=== PATIENT | male | born 1990 | race Hispanic/Latino ===

== ENCOUNTER 2017-08-08 18:52 | Emergency (ER) | payer SELFPAY | END 2017-08-08 19:55 | disposition home or self-care (01) | LOC: EDH 18:52 | DX: H65.01 Acute serous otitis media, right ear (principal) ==

== ENCOUNTER 2017-08-18 11:50 | Emergency (ER) | payer SELFPAY | END 2017-08-18 12:38 | disposition home or self-care (01) | LOC: EDH 11:50 | DX: R05 Cough (principal); Z72.0 Tobacco use | CPT/HCPCS: 99281 ==

== ENCOUNTER 2018-02-27 11:06 | Emergency (ER) | payer MEDICARE | END 2018-02-27 11:54 | disposition home or self-care (01) | LOC: EDH 11:06 | DX: J06.9 Acute upper respiratory infection, unspecified (principal) | CPT/HCPCS: 99281 ==

== ENCOUNTER 2019-06-01 11:15 | Emergency (ER) | payer MEDICARE | END 2019-06-01 12:31 | disposition home or self-care (01) | LOC: EDH 11:15 | DX: R50.9 Fever, unspecified (principal); M79.10 Myalgia, unspecified site; R11.0 Nausea; R53.81 Other malaise; Z79.899 Other long term (current) drug therapy; Z72.0 Tobacco use | CPT/HCPCS: 99281 ==

== ENCOUNTER 2021-01-03 10:20 | Emergency (ER) | payer MEDICARE ==
[~2021-01-03] VITALS: Ht 180.3 cm; Wt 147.4 kg
[2021-01-03 10:26] VITALS: BP 123/77
[2021-01-03 11:05] LABS: EOSINOPHILS % (AUTO) 1.8 % (0.0-8.0); HEMATOCRIT 48.1 % (42-54); LYMPHOCYTES % (AUTO) 15.9 % (21.0-51.0); MEAN CORPUSCULAR HEMOGLOBIN 29.7 pg (27.0-33.0); MEAN CORPUSCULAR HGB CONC 33.1 g/dL (32.0-36.0); MEAN CORPUSCULAR VOLUME 89.7 fL (79-99); MONOCYTES % (AUTO) 6.7 % (3.0-13.0); NEUTROPHILS % (AUTO) 74.2 % (40.0-77.0); PLATELET COUNT (AUTO) 179 K/uL (130-400); RED BLOOD CELL COUNT(AUTO) 5.36 MIL/uL (4.50-6.20); RED CELL DISTRIBUTION WIDTH 12.7 % (11.0-15.5); WHITE BLOOD COUNT (AUTO) 5.1 K/uL (4.8-10.8)
[2021-01-03 11:18] LABS: CREATININE 1.1 mg/dL (0.5-1.5); POTASSIUM 3.5 mmol/L (3.5-5.1)
[2021-01-03 11:20] LABS: APPEARANCE,URINE Clear (CLEAR); BILIRUBIN,URINE Negative (NEGATIVE); COLOR,URINE Yellow (YELLOW); GLUCOSE, URINE (UA) Negative (NEGATIVE); KETONES,URINE Negative (NEGATIVE); LEUKOCYTE ESTERASE ,URINE Trace (NEGATIVE); NITRATE,URINE Negative (NEGATIVE); OCCULT BLOOD,URINE Negative (NEGATIVE); PROTEIN,URINE POS 1+ mg/dL (NEGATIVE)
[2021-01-03 11:22] LABS: ALBUMIN 3.7 g/dL (3.5-5.0); BILIRUBIN,TOTAL 0.8 mg/dL (0.2-1.0); TOTAL PROTEIN, SERUM 7.7 g/dL (6.0-8.3)
[2021-01-03 11:28] LABS: BACTERIA,URINE Rare /HPF (None Seen); RBC,URINE 0-1 /HPF (0-1); SQUAMOUS EPITHELIAL CELL,UR Few /HPF (0-2)
[2021-01-03 11:49] LABS: B-TYPE NATRIURETIC PEPTIDE < 5 pg/mL (0-100)
[2021-01-03 12:11] LABS: INR 0.99 (0.85-1.15); PROTHROMBIN TIME 10.8 SEC (9.6-11.6)
[2021-01-03 12:23] VITALS: BP 143/85
[2021-01-03] MEDS ORDERED: IBUPROFEN 600 MG TABLET PO ONE (12:30)
[2021-01-03] MEDS ORDERED: 0.9%NACL 1000ML 1,000 ML IV ONE (12:30)
[2021-01-03] MEDS ORDERED: ACETAMINOPHEN 500 MG TABLET PO ONE (12:30)
[2021-01-03] MEDS ORDERED: IBUP-2070 PO (13:19)
[2021-01-03] MEDS ORDERED: AZIT250T9 PO (13:19)
[2021-01-03] MEDS ORDERED: ACET-3194 PO (13:20)
[2021-01-03] MEDS ORDERED: GUAI-899 PO (13:20)
[2021-01-03] MEDS ORDERED: ALBU8.5H8 IH (13:20)
[2021-01-03 13:53] VITALS: BP 133/78
== END 2021-01-03 13:50 | disposition home or self-care (01) ==
LOC: EDH 10:20
DX: U07.1 COVID-19 (principal); J45.909 Unspecified asthma, uncomplicated; E66.9 Obesity, unspecified; Z79.1 Long term (current) use of non-steroidal anti-inflammatories (NSAID); Z79.899 Other long term (current) drug therapy; F17.210 Nicotine dependence, cigarettes, uncomplicated; Z68.42 Body mass index [BMI] 45.0-49.9, adult
CPT/HCPCS: 36415; 71045; 80053; 81001; 83880; 84484; 85025; 85610; 85730; 87635; 87804 ×2; 93005; 99285; C9803; J7030

== ENCOUNTER 2021-06-15 01:57 | Emergency (ER) | payer MEDICARE ==
[~2021-06-15] VITALS: Ht 180.3 cm; Wt 158.8 kg
[~2021-06-15 01:57] MED LIST: ACET-3194 PO; ALBU8.5H8 IH; AZIT250T9 PO; GUAI-899 PO; IBUP-2070 PO
[2021-06-15] MEDS ORDERED: DOXY-336 PO (02:45)
[2021-06-15 03:23] VITALS: BP 128/62
== END 2021-06-15 03:19 | disposition home or self-care (01) ==
LOC: EDH 01:57
DX: J02.9 Acute pharyngitis, unspecified (principal); Z20.822 Contact with and (suspected) exposure to COVID-19; Z79.899 Other long term (current) drug therapy
CPT/HCPCS: 87635; 87880; 99283; C9803

== ENCOUNTER 2021-07-03 13:07 | Emergency (ER) | payer MEDICARE ==
[~2021-07-03] VITALS: Ht 180.3 cm; Wt 145.1 kg
[~2021-07-03 13:07] MED LIST changes: +DOXY-336 PO
[2021-07-03 13:09] VITALS: BP 132/85
[2021-07-03] MEDS ORDERED: D-ME118S47 PO (13:51)
[2021-07-03] MEDS ORDERED: ONDA-104 PO (13:51)
[2021-07-03] MEDS ORDERED: IBUP-2070 PO (13:51)
== END 2021-07-03 14:13 | disposition home or self-care (01) ==
LOC: EDH 13:07
DX: U07.1 COVID-19 (principal); F17.200 Nicotine dependence, unspecified, uncomplicated; Z79.899 Other long term (current) drug therapy; Z79.1 Long term (current) use of non-steroidal anti-inflammatories (NSAID)
CPT/HCPCS: 87635; 87804 ×2; 87880; 99283; C9803

== ENCOUNTER 2022-05-28 13:37 | Emergency (ER) | payer MEDICARE ==
[~2022-05-28] VITALS: Ht 180.3 cm; Wt 149.7 kg
[~2022-05-28 13:37] MED LIST changes: +D-ME118S47 PO; -DOXY-336 PO; +DOXY-469 PO; +ONDA-104 PO
[2022-05-28 13:53] VITALS: BP 143/77
[2022-05-28] MEDS ORDERED: MAG/ALUM/SIMETH 30 ML UDCUP PO ONE (15:00)
[2022-05-28] MEDS ORDERED: LIDOCAINE HCL 2% VISCOUS 15 ML UDCUP PO ONE (15:00)
[2022-05-28] MEDS ORDERED: FAMO-136 PO (16:42)
[2022-05-28] MEDS ORDERED: CETI10TA57 PO (16:42)
== END 2022-05-28 16:55 | disposition home or self-care (01) ==
LOC: EDH 13:37
DX: J06.9 Acute upper respiratory infection, unspecified (principal); K21.9 Gastro-esophageal reflux disease without esophagitis; Z79.899 Other long term (current) drug therapy; Z20.822 Contact with and (suspected) exposure to COVID-19
CPT/HCPCS: 99285; 71045; 87635; 87880; 87804 ×2; 93005; C9803

== ENCOUNTER 2023-04-19 21:18 | Emergency (ER) | payer MEDICARE, OTHER ==
[~2023-04-19] VITALS: Ht 180.3 cm; Wt 127.0 kg
[~2023-04-19 21:18] MED LIST changes: +BROM118S48 PO; +CETI10TA57 PO; -D-ME118S47 PO; +FAMO-136 PO
[2023-04-19 21:19] VITALS: BP 137/89; PULSE 106; RESP 17; O2SAT 98
[2023-04-19] MEDS ORDERED: CHARCOAL/AQUA 25GM/120ML PO ONE (21:30)
[2023-04-19 21:40] LABS: BASOPHILS # (AUTO) 0.04 K/uL (0.00-0.20); BASOPHILS % (AUTO) 0.7 % (0.0-5.0); EOSINOPHILS # (AUTO) 0.13 K/uL (0.00-0.70); EOSINOPHILS % (AUTO) 2.2 % (0.0-8.0); HEMATOCRIT 46.1 % (42-54); IMMATURE GRANULOCYTE ABSOLUTE 0.03 K/uL (0-1); LYMPHOCYTES % (AUTO) 33.3 % (21.0-51.0); MEAN CORPUSCULAR HEMOGLOBIN 31.3 pg (27.0-33.0); MEAN CORPUSCULAR HGB CONC 34.1 g/dL (32.0-36.0); MONOCYTES # (AUTO) 0.7 K/uL (0.1-1.0); MONOCYTES % (AUTO) 11.9 % (3.0-13.0); NEUTROPHILS # (AUTO) 3.1 K/uL (1.8-7.7); NEUTROPHILS % (AUTO) 51.4 % (40.0-77.0); PLATELET COUNT (AUTO) 209 K/uL (130-400); RED BLOOD CELL COUNT(AUTO) 5.01 MIL/uL (4.50-6.20); RED CELL DISTRIBUTION WIDTH 13.2 % (11.0-15.5)
[2023-04-19 21:59] LABS: CARBON DIOXIDE 27 mmol/L (21-32); CHLORIDE 102 mmol/L (101-111); CREATININE 0.8 mg/dL (0.5-1.5); GLOMERULAR FILTR. RATE CALC 121 mL/min (>90); GLUCOSE,RANDOM 104 mg/dL (70-105); POTASSIUM 3.3 mmol/L (3.5-5.1); SODIUM SERUM 138 mmol/L (136-145); UREA NITROGEN, BLOOD 4 mg/dL (7-18)
[2023-04-19 22:02] LABS: ALANINE AMINOTRANSFERASE 53 U/L (12-78); ALBUMIN 3.5 g/dL (3.5-5.0); ALCOHOL, BLOOD 13 mg/dL (0-10); ASPARTATE AMINOTRANSFERASE 33 U/L (10-37); BILIRUBIN,TOTAL 0.6 mg/dL (0.2-1.0); CREATINE KINASE, TOTAL 114 U/L (21-232); TOTAL PROTEIN, SERUM 7.2 g/dL (6.0-8.3)
[2023-04-19 22:06] LABS: ACETAMINOPHEN < 1 mcg/mL (10-29); SALICYLATE < 2.8 mg/dL (2.8-20.0)
== END 2023-04-19 22:30 | disposition left against medical advice (07) ==
LOC: EDH 21:18
DX: T14.91XA Suicide attempt, initial encounter (principal); F17.200 Nicotine dependence, unspecified, uncomplicated; Z79.899 Other long term (current) drug therapy; X83.8XXA Intentional self-harm by other specified means, initial encounter; Y93.89 Activity, other specified; Y92.89 Other specified places as the place of occurrence of the external cause; Y99.8 Other external cause status
CPT/HCPCS: 99284; 82550; 80053; 85025; 36415; 93005; G0481

== ENCOUNTER 2024-07-16 21:54 | Emergency (ER) | payer OTHER ==
[~2024-07-16] VITALS: Ht 180.3 cm; Wt 136.5 kg
[~2024-07-16 21:54] MED LIST changes: -DOXY-469 PO; +DOXY100C61 PO
--- NOTE | 2024-07-16 22:06 | ERN ---
ED Note History of Present Illness Stated Complaint: TAILBONE INJURY/PAIN Chief Complaint: Back Pain or Injury Time Seen by MD: 21:58 Dictation: PATIENT IS A 34-YEAR-OLD MALE WITH COMPLAINTS OF LEFT LATERAL LUMBOSACRAL TENDERNESS STATUS POST A FALL OFF OF A PORCH ABOUT4 FT HIGH ONTO HIS BACK THREE WEEKS AGO. HE STATES IT HURT FOR SEVERAL DAYS AND HAVE HER KNEE DID NOT GO SEE THE DOCTOR OR GO TO THE EMERGENCY ROOM. HE SAID THEN TWO DAYS AGO HE WAS MOVING SOME FURNITURE AND FELT A POP IN HIS LOW BACK AND NOW HE HAS NUMBNESS AND TINGLING TO HIS LEFT LEG. NO CHANGE IN BOWEL OR BLADDER FUNCTION. HIS PRIMARY CARE DOCTOR IS THE [facility] HE HAS NOT BEEN TO SEE THEM. HE IS REQUESTING AN MRI, I EXPLAINED TO HIM I COULD DO PLAIN FILM X-RAYS AND TREAT PAIN AND THAT HE WOULD NEED TO SEE HIS DOCTOR FOR MRI AND FURTHER MANAGE Allergies: Coded Allergies: No Known Drug Allergies (Verified Allergy, Unknown, 05/30/15) Home Meds Active Scripts Famotidine (Pepcid) 20 Mg Tablet, 20 MG PO DAILY, #30 TAB Prov:GISELE AMARAL 05/28/22 Cetirizine HCl (Cetirizine HCl) 10 Mg Tablet, 10 MG PO DAILY, #30 TAB Prov:GISELE AMARAL 05/28/22 D-Methorphan Hb/P-Epd HCl/Bpm (Bromfed Dm Cough Syrup) 118 Ml Syrup, 10 ML PO QID, #120 ML Prov:VELIA BROOKS MD 07/03/21 Ondansetron HCl (Ondansetron HCl) 4 Mg Tablet, 4 MG PO TID for nausea, #15 TAB Prov:VELIA BROOKS MD 07/03/21 Ibuprofen (Ibuprofen) 600 Mg Tablet, 600 MG PO Q6H PRN for PAIN, #30 TAB Prov:VELIA BROOKS MD 07/03/21 Doxycycline Monohydrate (Doxycycline Monohydrate) 100 Mg Capsule, 1 CAP PO BID for 5 Days, #10 CAP 0 Refills Prov:JILL HOUSE MD 06/15/21 Guaifenesin/Codeine Phosphate (Guaifenesin AC Cough Syrup) 473 Ml Liquid, 10 ML PO TID for 5 Days, #120 ML Prov:ASHUTOSH WELLS CHRISTI 01/03/21 Albuterol Sulfate (Proair Hfa) 8.5 Gm Hfa.aer.ad, 8.5 GM IH Q4HPRN PRN for SHORTNESS OF BREATH for 5 Days, #1 INHALER Prov:ASHUOTSH WELLS CHRISTI 01/03/21 Acetaminophen (Acetaminophen) 650 Mg Tablet.er, 650 MG PO Q4HPRN PRN for FEVER for 5 Days, #15 TAB Prov:ASHUTOSH WELLS CHRISTI 01/03/21 Ibuprofen (Ibuprofen) 600 Mg Tablet, 600 MG PO Q6H PRN for PAIN, #15 TAB Prov:ASHUTOSH WELLS CHRISTI 01/03/21 Azithromycin (Azithromycin) 250 Mg Tablet, 250 MG PO DAILY for ghislaine for 5 Days, #6 TAB Prov:ASHUTOSH WELLS CHRISTI 01/03/21 Past Medical History Past Medical History: No Pertinent History Surgical History: None Family History: CAD, DM, HTN Social History: Smokers, ETOH, Other RN Note Reviewed/Agreed w/PFSH: Yes Review of System Dictation CONSTITUTIONAL: NEGATIVE EXCEPT FOR HPI HEAD/FACE: NEGATIVE EXCEPT FOR HPI EENT: NEGATIVE EXCEPT FOR HPI RESPIRATORY: NEGATIVE EXCEPT FOR HPI GASTROINTESTINAL/ABDOMINAL: NEGATIVE EXCEPT FOR HPI GENITOURINARY: NEGATIVE EXCEPT FOR HPI MUSCULOSKELETAL: NEGATIVE EXCEPT FOR HPI LEFT LATERAL LUMBOSACRAL TENDERNESS INTEGUMENTARY: NEGATIVE EXCEPT FOR HPI NEUROLOGICAL/PSYCH: NEGATIVE EXCEPT FOR HPI LEFT LEG NEUROPATHY HEMATOLOGIC/LYMPHATIC: NEGATIVE EXCEPT FOR HPI ALL SYSTEMS NEGATIVE, EXCEPT NOTED ABOVE. 13 POINT REVIEW OF SYSTEMS ASSESSED AND ALL NEGATIVE EXCEPT FOR ABOVE. Initial Vital Sign VS Vital Signs Date Time Temp Pulse Resp B/P (MAP) Pulse Ox O2 Delivery O2 Flow Rate FiO2 07/16/24 21:56 98.1 90 18 164/104 98 Room Air 0 Physical Exam Dictation VITAL SIGNS REVIEWED GENERAL APPEARANCE: ALERT, ORIENTED X 3, MODERATE ACUTE DISTRESS, WELL DEVELOPED, NOURISHED. OBESE HEAD AND FACE: NON-TRAUMATIC. EYES: PERRL, PINK CONJUNCTIVAS, EYELID NO TRAUMA, ANTERIOR CHAMBER WITH ARCUS SENILIS. EARS: PINNAS INTACT AND NO SIGNS OF TRAUMA OR ERYTHEMA EAR CANALS CLEAR AND NO DISCHARGE TM NO ERYTHEMA NOSE: NO DISCHARGE, NO BLEEDING. OROPHARYNX: MOUTH NORMAL, TONGUE PINK, PHARYNX CLEAR,NO ERYTHEMA, TONSILS NO EXUDATES, NO ABSCESSES NOTED, MUCOUS MEMBRANE MOIST NECK: SUPPLE, NON-TENDER, NO THYROMEGALY, NO MASSES, NO JVD, NO BRUITS BREAST:DEFERRED CHEST:NO TENDERNESS, NO CREPITUS, NO PARADOXICAL MOVEMENT, NO RETRACTIONS LUNGS:CLEAR, WELL-VENTILATED, SYMMETRIC, NO RALES, NO WHEEZING, NO RHONCHI, NO STRIDOR, GOOD BREATH SOUNDS BILATERALLY HEART: REGULAR RATE, REGULAR RHYTHM, NO MURMUR, NO GALLOPS VASCULAR: NO PERIPHERAL EDEMA, ABDOMEN: SOFT, POSITIVE BOWEL SOUNDS, NONDISTENDED, NO GUARDING, NONTENDER, NO REBOUND, NO MASSES NO HEPATOMEGALY, NO SPLENOMEGALY, NO GREGORY'S SIGN, NO HERNIAS. RECTAL: DEFERRED GENITAL: DEFERRED NEUROLOGICAL: NORMAL SPEECH, MOTOR FUNCTION INTACT, SENSORY FUNCTION INTACT MUSCULOSKELETAL: NECK NONTENDER, FULL RANGE OF MOTION, DIFFUSE LATERAL LUMBOSACRAL TENDERNESS, NO MIDLINE SPINE PAIN OR STEP-OFFS. NEGATIVE LEG RAISE 10 LEFT EXTREMITIES: NONTENDER, FULL RANGE OF MOTION SKIN: COLOR PINK, DRY, NO TURGOR, NO RASH, NO LACERATIONS, NO ABRASIONS, NO CONTUSIONS. LYMPHATIC: DEFERRED Results (Laboratory/Radiology) Laboratory/Radiology 06/21/2044 LUMBAR X-RAY NEGATIVE Labs Reviewed?: Yes ED Course ED Course Orders Procedure Category Date Status Time Ketorolac 60mg/2ml PHA 07/16/24 Complete (Toradol 60mg/2ml) 22:30 Lumbar Spine 2-3vws RAD 07/16/24 Taken 22:04 Current Medications Medications (Trade) Dose Ordered Sig/Martha Route PRN Reason Start Time Stop Time Status Last Admin Dose Admin Ketorolac Tromethamine (toRADol 60MG/ 2ML) 60 mg ONCE ONCE IM 07/16/24 22:30 07/16/24 22:31 DC Vital Signs Date Time Temp Pulse Resp B/P (MAP) Pulse Ox O2 Delivery O2 Flow Rate FiO2 07/16/24 21:56 98.1 90 18 164/104 98 Room Air 0 2145/LUMBAR X-RAY NEGATIVE WE WILL DISCHARGE PATIENT HOME WITH ACUTE LUMBOSACRAL PAIN WITH RIGHT LEG RADICULOPATHY. TOLD FOLLOW UP WITH HIS DOCTOR AT [facility] FOR MRI AND MANAGEMENT. Medical Decision Making MDM MEDICAL DISCHARGE MAKING BASED ON EMPIRIC TREATMENT FOR ACUTE LOW BACK PAIN LUMBAR X-RAY NEGATIVE PATIENT MADE AWARE TO SEE HIS PRIMARY CARE DOCTOR TOMORROW OR THE NEXT DAY FOR MRI OF THE LUMBAR SPINE WE WILL BE DISCHARGED HOME WITH IBUPROFEN/PREDNISONE/FLEXERIL NO LIFTING GREATER THAN 10 LB GUIDELINES DX & DISP Disposition: Discharge Departure Impression: Primary Impression: Lumbar back pain with radiculopathy affecting left lower extremity Condition: Stable Scripts Omeprazole (Omeprazole) 40 Mg Capsule.dr 1 CAP PO DAILY for 30 Days, #30 CAP 0 Refills Prov: RIO LEDEZMA NP 07/16/24 Cyclobenzaprine HCl (Cyclobenzaprine HCl) 10 Mg Tablet 1 TAB PO TID for muscle spasms for 10 Days, #30 TAB 0 Refills Prov: RIO LEDEZMA NP 07/16/24 Ibuprofen (Ibuprofen 800 mg Tab) 800 Mg Tab 800 MG PO Q8H PRN for fever or pain, #30 TAB 0 Refills Prov: RIO LEDEZMA NP 07/16/24 Prednisone (Prednisone) 20 Mg Tablet 1 TAB PO AD for 6 Days, #14 TAB 0 Refills TAKE 1 TAB BY MOUTH THREE TIMES PER DAY X3 DAYS, THEN TAKE 1 TAB BY MOUTH TWICE A DAY X2 DAYS, THEN TAKE 1 TAB BY MOUTH ONCE A DAY X1 DAY. Prov: RIO LEDEZMA NP 07/16/24 Additional Instructions: FOLLOW-UP WITH PRIMARY CARE PROVIDER IN 1 TO 2 DAYS. TAKE MEDICATIONS DIRECTED HERE IN THE EMERGENCY ROOM. OKAY TO CONTINUE HOME MEDICATIONS UNLESS OTHERWISE DISCUSSED DURING YOUR VISIT IN THE EMERGENCY ROOM TODAY. RETURN TO YOUR NEAREST EMERGENCY ROOM IF SYMPTOMS WORSEN OR IF THERE IS NO IMPROVEMENT. CALL 911 IF YOU NEED IMMEDIATE ASSISTANCE. TAKE TYLENOL OR MOTRIN [id number] NEEDED AND IF NO CONTRAINDICATIONS ARE PRESENT. INCREASE ORAL HYDRATION. A WOUND CULTURE OR URINE CULTURE WAS ORDERED HERE IN THE EMERGENCY ROOM DEPARTMENT PLEASE FOLLOW-UP WITH PRIMARY CARE PROVIDER AND ADVISE THEM TO GET REPEAT PORTS FROM OUR FACILITY. IF YOU HAD ANY RELL WRAP/SPLINTS THAT WERE APPLIED HERE, PLEASE DO NOT REMOVE THEM UNTIL YOU SEE YOUR PRIMARY CARE OR SPECIALTY. TAKE IBUPROFEN AND FLEXERIL EVERY8 HOURS WITH FOOD FOR THE NEXT THREE DAYS. TAKE PREDNISONE DIRECTED UNTIL GONE. NO LIFTING GREATER THAN 10 LB AND SEE YOUR PRIMARY CARE DOCTOR AT [facility] FOR RECOMMENDED MRI AND REFERRAL Referrals: SELF,REFERRAL (PCP) Time of Disposition: 22:50 I have reviewed the case, and I agree with, Diagnosis and Plan RIO LEDEZMA NP Jul 16, 2024 22:06
[2024-07-16] MEDS ORDERED: CYCL-309 PO (22:50)
[2024-07-16] MEDS ORDERED: IBUP-2077 PO (22:50)
[2024-07-16] MEDS ORDERED: PRED20TA3 PO (22:50)
[2024-07-16] MEDS ORDERED: OMEP40CA21 PO (22:50)
[2024-07-16] MEDS: ketOROlac 60 MG VIAL (30MG/ML) IM ONE (23:02)
[2024-07-16 23:09] VITALS: BP 155/89; PULSE 87; RESP 18; TEMP 98.5; O2SAT 99
--- NOTE | 2024-07-17 08:47 | HMCIMG ---
Exam Type: LUMBAR SPINE 2-3VWS Clinical Information: FALL ON BACK THREE WEEKS AGO WITH LEFT LATERAL LUMBAR SACRAL PAIN TENDERNES Comparison: None Findings: Exam of the lumbosacral spine demonstrates no evidence of fracture, subluxation, or significant degenerative change. The alignment of the spine is normal. The disc spaces are intact. The facet joints are preserved without significant degenerative changes Bone mineralization is normal. Impression: Normal exam of the lumbosacral spine.
== END 2024-07-16 23:10 | disposition home or self-care (01) ==
LOC: EDH 21:54
DX: M54.16 Radiculopathy, lumbar region (principal); F17.200 Nicotine dependence, unspecified, uncomplicated; Z79.899 Other long term (current) drug therapy
CPT/HCPCS: 99283; 72100; 96372; J1885